=== PATIENT | female | born 1980 | race Caucasian/White ===

== ENCOUNTER 2017-08-18 13:08 | Emergency (ER) | payer SELFPAY, MEDICAID | END 2017-08-18 16:00 | disposition left against medical advice (07) | LOC: E/R 13:08 | DX: Z53.21 Procedure and treatment not carried out due to patient leaving prior to being seen by health care provider (principal) ==

== ENCOUNTER 2018-01-10 14:18 | Inpatient (IN) | payer MEDICAID ==
[2018-01-10] MEDS ORDERED: CARBOPROST 250 MCG INJ IM ×3 (16:00→23:00)
[2018-01-10] MEDS ORDERED: METHYLERGONOVINE 0.2 MG INJ IM ×3 (16:00→23:00)
[2018-01-10] MEDS ORDERED: LIDOCAINE 1% (MPF) 30 ML INJ INJ ×2 (16:00)
[2018-01-10] MEDS ORDERED: MISOPROSTOL 200 MCG TAB PR ×3 (16:00→23:00)
[2018-01-10] MEDS ORDERED: LACTATED RINGER'S 1,000 ML IV* (16:00)
[2018-01-10] MEDS ORDERED: BUTORPHANOL 2 MG INJ IV (16:00)
[2018-01-10] MEDS ORDERED: OXYTOCIN 30 UNITS/LR 500 ML IV ×4 (16:00→23:00)
[2018-01-10] MEDS ORDERED: IBUPROFEN 600 MG TAB PO ×2 (16:00)
[2018-01-10 16:42] LABS: ADD MAN DIFF? NO
[2018-01-10 16:44] LABS: BASOPHILS % 0.3 % (0.0-2.0); EOSINOPHILS # 0.1 10^3/ul (0.0-0.5); EOSINOPHILS % 0.7 % (0.0-7.0); HEMATOCRIT 36.7 % (37.0-47.0); HEMOGLOBIN 12.4 g/dl (12.0-16.0); LYMPHOCYTES # 1.3 10^3/ul (0.8-2.9); MEAN CORPUSCULAR HEMOGLOBIN 29.8 pg (29.0-33.0); MEAN CORPUSCULAR HGB CONC 33.8 g/dl (32.0-37.0); MEAN CORPUSCULAR VOLUME 88.2 fl (82.0-101.0); MONOCYTE # 0.6 10^3/ul (0.3-0.9); MONOCYTES % 5.9 % (0.0-11.0); NEUTROPHIL # 7.4 10^3/ul (1.6-7.5); NEUTROPHILS % 78.7 % (39.0-77.0); PLATELET COUNT 207 10^3/UL (140-415); RED BLOOD COUNT 4.16 10^6/ul (4.20-5.40); RED CELL DISTRIBUTION WIDTH 14.2 % (11.5-14.5)
[2018-01-10 16:44] LABS: WHITE BLOOD COUNT 9.4 10^3/ul (4.8-10.8)
[2018-01-10] MEDS: AMPICILLIN 2 GM/NS (PMX) 100 ML IV (16:45)
[2018-01-10] MEDS: LACTATED RINGER'S 1,000 ML IV* ×2 (16:45→22:41)
[2018-01-10 17:04] LABS: INR 0.88; PT RATIO 0.9
[2018-01-10 17:05] LABS: PARTIAL THROMBOPLASTIN TIME 25.5 Sec (23.0-35.0)
[2018-01-10 17:41] LABS: HEPATITIS B SURFACE ANTIGEN NEGATIVE (NEGATIVE)
[2018-01-10] MEDS: BUTORPHANOL 2 MG INJ IV (17:41)
[2018-01-10] MEDS: OXYTOCIN 30 UNITS/LR 500 ML IV ×3 (20:43→21:02)
[2018-01-10] MEDS ORDERED: LIDOCAINE 0.5% (SDV) 50 ML INJ (20:49)
[2018-01-10] MEDS: AMPICILLIN 1 GM/NS (PMX) 50 ML IV (21:03)
[2018-01-10] MEDS ORDERED: DEXTROSE 5%-LR 1,000 ML IV (22:41)
[2018-01-10] MEDS ORDERED: DIBUCAINE 1% 30 GM OINT PR (23:00)
[2018-01-10] MEDS ORDERED: DIPHENHYDRAMINE 50 MG INJ IV (23:00)
[2018-01-10] MEDS ORDERED: ZOLPIDEM 5 MG TAB PO (23:00)
[2018-01-10] MEDS ORDERED: ONDANSETRON 4 MG INJ IV (23:00)
[2018-01-10] MEDS ORDERED: ACETAMINOPHEN 325 MG TAB PO (23:00)
[2018-01-10] MEDS: IBUPROFEN 600 MG TAB PO (23:40)
[2018-01-10] MEDS: LANOLIN 7 GM TUBE TOP (23:41)
[2018-01-10] MEDS: WITCH HAZEL/GLYCERIN PAD PR (23:41)
[2018-01-10] MEDS: BENZOCAINE 20% 56 ML SPRAY TOP (23:41)
[2018-01-11] MEDS: IBUPROFEN 600 MG TAB PO ×3 (06:13→18:36)
[2018-01-11 09:30] LABS: ADD MAN DIFF? NO
[2018-01-11 09:36] LABS: BASOPHILS % 0.3 % (0.0-2.0); EOSINOPHILS # 0.1 10^3/ul (0.0-0.5); EOSINOPHILS % 0.7 % (0.0-7.0); HEMATOCRIT 33.3 % (37.0-47.0); HEMOGLOBIN 10.8 g/dl (12.0-16.0); LYMPHOCYTES # 1.1 10^3/ul (0.8-2.9); LYMPHOCYTES % 10.2 % (15.0-51.0); MEAN CORPUSCULAR HEMOGLOBIN 29.2 pg (29.0-33.0); MEAN CORPUSCULAR HGB CONC 32.4 g/dl (32.0-37.0); MEAN PLATELET VOLUME 10.4 fl (7.4-10.4); MONOCYTE # 0.7 10^3/ul (0.3-0.9); NEUTROPHIL # 9.1 10^3/ul (1.6-7.5); NEUTROPHILS % 82.3 % (39.0-77.0); PLATELET COUNT 172 10^3/UL (140-415); RED CELL DISTRIBUTION WIDTH 14.3 % (11.5-14.5)
[2018-01-11 09:36] LABS: WHITE BLOOD COUNT 11.1 10^3/ul (4.8-10.8)
[2018-01-11] MEDS: SENNA/DOCUSATE NA (8.6MG/50MG) TAB PO (10:35)
[2018-01-11] MEDS: HYDROCODONE/APAP (5/325) TAB PO (10:35)
[2018-01-11 15:06] LABS: RAPID PLASMA REAGIN NONREACTIVE (NR)
[2018-01-12] MEDS: IBUPROFEN 600 MG TAB PO ×4 (00:29→17:42)
[2018-01-12] MEDS ORDERED: MEASLES,MUMPS,RUBELLA VACCINE INJ SC* (09:00)
[2018-01-12] MEDS: SENNA/DOCUSATE NA (8.6MG/50MG) TAB PO (09:55)
[2018-01-12] MEDS: DIPHTH/TET/ACEL PERTUSS (ADULT) 0.5 ML VIAL IM* (09:56)
[2018-01-12] MEDS: LANOLIN 7 GM TUBE TOP (17:43)
== END 2018-01-12 18:30 | disposition home or self-care (01) | DRG 775 ==
LOC: OBT 14:18 → L-D 14:20 → PP1 01-11 16:00 → L-D 15:10 → OBT 15:45 → L-D 15:45 → PP1 22:10
PROVIDERS: Obstetrics & Gynecology
PROC: 10E0XZZ Delivery of Products of Conception, External Approach (ICD-10-PCS; principal; 2018-01-10)
PROC: 0KQM0ZZ Repair Perineum Muscle, Open Approach (ICD-10-PCS; 2018-01-10)
PROC: 4A1HXCZ Monitoring of Products of Conception, Cardiac Rate, External Approach (ICD-10-PCS; 2018-01-10)
DX: O99.824 Streptococcus B carrier state complicating childbirth (principal); O70.1 Second degree perineal laceration during delivery; Z37.0 Single live birth; Z3A.38 38 weeks gestation of pregnancy
CPT/HCPCS: 85025; 85610; 85730; 86592; 86850; 86900; 86901; 87340